=== PATIENT | male | born 1975 | race African-American/Black ===

== ENCOUNTER 2017-07-25 18:18 | Emergency (ER) | payer OTHER ==
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
--- NOTE | 2017-07-25 19:49 | Consultation ---
DATE OF CONSULTATION: 07/25/2017 EMERGENCY SURGICAL CONSULT REFERRING PHYSICIAN: Dr. Demarco. REASON FOR CONSULTATION: Prolapsed rectum. Thank you for referring this patient to me. HISTORY OF PRESENT ILLNESS: This patient comes from a [facility] in [place]. He is totally schizophrenic and does not want to be touched. He claims that the prolapse have been present for 3 months, although the information from the [facility]dc appears to be that it is recent. The patient refused to be examined and refuses any kind of surgical intervention. We will notify Dr. Demarco about this and there appears to be no contact number of any family member that can intercede on his behalf. The ER physician and Dr. Demarco will be notified about this situation. JOB# [id number]
== END 2017-07-25 20:55 | disposition home or self-care (01) ==
LOC: ER 18:18
DX: K62.3 Rectal prolapse (principal); F12.90 Cannabis use, unspecified, uncomplicated
CPT/HCPCS: Z7502